=== PATIENT | male | born 1980 | race Two or more races ===

== ENCOUNTER 2018-12-11 05:53 | Inpatient (IN) | payer OTHER ==
[~2018-12-11] VITALS: Ht 180.3 cm; Wt 89.8 kg
[2018-12-11 06:11] VITALS: BP 116/59
--- NOTE | 2018-12-11 06:14 | NUR ---
TO LOBBY A/W BED, AMBULATORY, VSS.
--- NOTE | 2018-12-11 07:13 | NUR ---
pt amb to bed #2
--- NOTE | 2018-12-11 07:18 | NUR ---
pt moved to bed #5
--- NOTE | 2018-12-11 07:27 | NUR ---
BIB SELF. AAOX4. C/O ABD PAIN TO UMBILICUS, RADIATES TO HIS RT SIDE OF ABDOMEN, N/V STARTED LAST NIGHT. PT STATES TENDERNESS TO TOUCH. DENIES TRAUMA OR INJURY. DENIES BLOOD IN VOMIT NOR STOOL. AFEBRILE. NO SOB NOTED. HOB UP. BED SIDE RAILS UP X1. ON LOW BED POSITION, LOCKED. ER MADE AWARE OF PT STATUS.
--- NOTE | 2018-12-11 08:00 | NUR ---
Dr. Noel evaluating patient at bedside.
[2018-12-11] MEDS ORDERED: NACL 0.9% 1,000 ML IV SCH ×2 (08:14→17:25)
[2018-12-11] MEDS ORDERED: NACL 0.9% 1,000 ML IV ONE (08:14)
[2018-12-11] MEDS ORDERED: KETOROLAC 30 MG/ML VIAL IVP ONE (08:15)
[2018-12-11] MEDS ORDERED: MORPHINE SULFATE 4 MG/ML SYR IVP ONE (08:15)
[2018-12-11] MEDS ORDERED: ONDANSETRON 4 MG/2 ML VIAL IVP ONE (08:15)
--- NOTE | 2018-12-11 08:45 | NUR ---
AUXILIARY EQUIPMENT TENDER AT BEDSIDE.
[2018-12-11 08:51] LABS: HEMATOCRIT 45.4 % (36-52); HEMOGLOBIN 15.8 g/dL (12.0-18.0); LYMPHOCYTES # (AUTO) 0.4 K/uL (2.0-11.5); MEAN CORPUSCULAR HEMOGLOBIN 32 pg (27-31); MEAN CORPUSCULAR HGB CONC 35 g/dL (33-37); MEAN CORPUSCULAR VOLUME 91.5 fL (80-94); MONOCYTES # (AUTO) 0.4 K/uL (0.8-1.0); MONOCYTES % (AUTO) 4.6 % (1.7-9.3); NEUTROPHILS # (AUTO) 8.1 K/uL (1.8-7.7); PLATELET COUNT (AUTO) 219 K/uL (140-450); RED BLOOD CELL COUNT(AUTO) 4.97 MIL/uL (4.20-6.10); RED CELL DISTRIBUTION WIDTH 12.7 % (11.6-13.7); WHITE BLOOD COUNT (AUTO) 8.9 K/uL (4.8-10.8)
[2018-12-11 09:01] LABS: LYMPHOCYTES % (AUTO) 4.4 % (20.5-51.1)
[2018-12-11 09:02] LABS: ANION GAP 12.6 (8-16); CARBON DIOXIDE 27.6 mmol/L (21-32); POTASSIUM 4.2 mmol/L (3.5-5.1)
[2018-12-11 09:05] LABS: ALBUMIN 4.6 g/dL (3.4-5.0); TOTAL BILIRUBIN 1.1 mg/dL (0.0-1.0)
[2018-12-11] MEDS ORDERED: PIPERACILLIN/TAZOBACTAM 3.375 GM in DEXTROSE 5% 50 ML IV ONE (09:25)
[2018-12-11] MEDS ORDERED: DEXT 5% /NACL 0.9% 1,000 ML IV SCH (09:32)
[2018-12-11] MEDS ORDERED: ACETAMINOPHEN 325 MG TAB PO PRN (09:35)
[2018-12-11] MEDS ORDERED: DOCUSATE SODIUM 100 MG GELCAP PO PRN (09:35)
[2018-12-11] MEDS ORDERED: ONDANSETRON 4 MG/2 ML VIAL IM/IVP PRN (09:35)
[2018-12-11] MEDS ORDERED: HYDROcodone/APAP 7.5/325 MG 1 TAB PO PRN (09:35)
--- NOTE | 2018-12-11 09:51 | NUR ---
Dr. Wolf and Dr. Noel evaluating patient at bedside.
[2018-12-11] MEDS ORDERED: PIPERACILLIN/TAZOBACTAM 3.375 GM VIAL IV ONE (10:00)
[2018-12-11] MEDS ORDERED: KETOROLAC 30 MG/ML VIAL IVP PRN (10:05)
[2018-12-11] MEDS ORDERED: MORPHINE SULFATE 2 MG/ML SYR IVP PRN (10:05)
[2018-12-11 10:06] LABS: PROTHROMBIN TIME 9.9 secs (10.8-13.4)
[2018-12-11 10:17] LABS: FREE T4 (FREE THYROXINE) 1.17 ng/dL (0.76-1.46); MAGNESIUM 1.9 mg/dL (1.8-2.4); THYROID STIMULATING HORMONE 3.21 uIU/mL (0.34-3.74)
[2018-12-11 10:30] VITALS: BP 113/59
--- NOTE | 2018-12-11 10:30 | NUR ---
PATIENT WAS TRANSFERRED FROM ED IN WHEELCHAIR. REPORT WAS GIVEN AT BEDSIDE. VS WAS TAKEN. MRSA WAS SWABBED. PATIENT WAS AWAKE, ALERT, AMBULATED SELF TO BED, STEADY GAIT. RESPIRATION EVEN, UNLABOR ON ROOM AIR. SKIN DRY AND WARM. DENIED PAIN AT THIS TIME. PATIENT WAS ORIENTED TO ROOM , STAFF, AND CALL LIGHT. PLAN OF CARE WAS DISCUSSED WITH PATIENT. BED AT LOW POSITION, SIDE RAILS UP. CALL LIGHT WITHIN REACH.
--- NOTE | 2018-12-11 10:30 | NUR ---
Patient will be admitted to care of Dr Bailey. Admited to Med Surg. Will go to room 118. Belongings list completed. Report to NAIN Sanchez.
[2018-12-11 10:41] LABS: BILIRUBIN,URINE 2+ (NEGATIVE); BLOOD, URINE NEGATIVE (NEGATIVE); COLOR,URINE AMBER (YELLOW); LEUKOCYTE ESTERASE ,URINE NEGATIVE (NEGATIVE); NITRITE, URINE NEGATIVE (NEGATIVE); UGLUCOSE NEGATIVE (NEGATIVE)
[2018-12-11 10:42] LABS: APPEARANCE,URINE SLIGHTLY HAZY (CLEAR)
[2018-12-11 10:51] LABS: RBC,URINE NONE SEEN /HPF (0-5); WBC,URINE NONE SEEN /HPF (0-5)
[2018-12-11 10:52] LABS: URINE AMORPHOUS URATE 1+ /HPF (None Seen)
--- NOTE | 2018-12-11 12:00 | NUR ---
PATIENT WAS TRANSFERRED TO OR. PATIENT IS STABLE AT THIS TIME
[2018-12-11] MEDS ORDERED: KETOROLAC 30 MG/ML VIAL ONE (12:36)
[2018-12-11] MEDS ORDERED: ONDANSETRON 4 MG/2 ML VIAL ONE (12:36)
[2018-12-11] MEDS ORDERED: PROPOFOL 200 MG/20 ML VIAL IV ONE (12:36)
[2018-12-11] MEDS ORDERED: NEOSTIGMINE 1:1000 10 MG/10 ML VIAL ONE (12:36)
[2018-12-11] MEDS ORDERED: GLYCOPYRROLATE 0.2 MG/ML VIAL ONE (12:36)
[2018-12-11] MEDS ORDERED: SUCCINYLCHOLINE CHLORIDE 200 MG/10 ML VIAL IVP ONE (12:36)
[2018-12-11] MEDS ORDERED: ROCURONIUM 50 MG/5 ML VIAL IV ONE (12:36)
[2018-12-11] MEDS ORDERED: DESFLURANE 240 ML BTL INH ONE (12:36)
[2018-12-11] MEDS ORDERED: DEXAMETHASONE 4 MG/ML VIAL ONE (12:36)
[2018-12-11] MEDS ORDERED: BUPIVACAINE-MPF/EPI 0.25% 30 ML VIAL INJ ONE (12:40)
[2018-12-11] MEDS ORDERED: HYDROmorphone PFS 2 MG/ML SYR ONE (12:46)
[2018-12-11] MEDS ORDERED: fentaNYL 0.05 MG/ML VIAL ONE (12:46)
[2018-12-11] MEDS ORDERED: HYDROmorphone 1 MG/ML AMP IVP PRN (13:15)
[2018-12-11] MEDS ORDERED: ONDANSETRON 4 MG/2 ML VIAL IVP PRN (13:15)
[2018-12-11] MEDS ORDERED: HYDROcodone/APAP 5/325 MG 1 TAB TAB PO PRN (13:50)
[2018-12-11 14:30] VITALS: BP 99/51
--- NOTE | 2018-12-11 14:36 | NUR ---
PATIENT WAS TRANSFERRED BACK FROM OR. REPORT WAS GIVEN AT BEDSIDE. VS WAS TAKEN. PATIENT IS STABLE AT THIS TIME
[2018-12-11 14:50] VITALS: BP 97/58
[2018-12-11 15:05] VITALS: BP 98/51
[2018-12-11 15:20] VITALS: BP 95/52
--- NOTE | 2018-12-11 16:00 | NUR ---
PATIENT WAS SLEEPING COMFORTABLY. RESPIRATION EVEN, UNLABOR ON ROOM AIR. NO DISTRESS NOTED AT THIS TIME
[2018-12-11] MEDS: PIPER/TAZO 3.375GM/D5W PREMIX 50 ML IV SCH ×2 (17:32→23:53)
--- NOTE | 2018-12-11 18:23 | NUR ---
PATIENT WAS AWAKE, ALERT. RESPIRATION EVEN, UNLABOR ON ROOM AIR. DENIED N/V. PATIENT TOLERATED DIET WELL.
--- NOTE | 2018-12-11 19:20 | NUR ---
ENDORSEMENT GIVEN TO LOOP PULLER NURSE. PATIENT IS STABLE AT THIS TIME
--- NOTE | 2018-12-11 19:21 | NUR ---
RECEIVED BEDSIDE REPORT FROM DAY SHIFT RN, PATIENT RESTING IN BED WITH VISITORS AT BEDSIDE, NO SIGNS OF DISTRESS ON RA, NO COMPLAINTS OF PAIN AT THIS TIME, BED LOW, CALL LIGHT IN REACH. WILL CONTINUE TO MONITOR.
--- NOTE | 2018-12-11 21:50 | NUR ---
PATIENT RESTING IN BED, NO SIGNS OF DISTRESS ON RA, PATIENT IS VERY HUNGRY AND REQUESTING FOOD, HE HAS TOLERATED HIS CLEAR LIQUID DIET AND HAS NO ABD PAIN. SPOKE WITH DR. CONNELL TO ADVANCE PATIENT DIET TO REGULAR VEGETARIAN, HE WILL PLACE ORDER.
[2018-12-12 00:15] VITALS: BP_SYST 106; BP_SYST 111; BP_DIAS 59; BP_DIAS 66
--- NOTE | 2018-12-12 02:35 | NUR ---
PATIENT IS SLEEPING IN BED, NO SIGNS OF DISTRESS ON RA. WILL CONTINUE TO MONITOR.
--- NOTE | 2018-12-12 04:13 | NUR ---
PATIENT IS STILL SLEEPING. WILL CONTINUE TO MONITOR.
[2018-12-12] MEDS: PIPER/TAZO 3.375GM/D5W PREMIX 50 ML IV SCH ×2 (05:47→13:08)
[2018-12-12 05:50] VITALS: BP 102/57
--- NOTE | 2018-12-12 05:50 | NUR ---
PT GOT UP TO THE BATHROOM AND VOIDED, THEN C/O PAIN 12/07. WILL MEDICATE ORDERED.
[2018-12-12 06:35] LABS: EOSINOPHILS % (AUTO) 0.1 % (0.0-4.0); HEMATOCRIT 38.4 % (36-52); HEMOGLOBIN 13.6 g/dL (12.0-18.0); LYMPHOCYTES # (AUTO) 0.9 K/uL (2.0-11.5); LYMPHOCYTES % (AUTO) 9.6 % (20.5-51.1); MEAN CORPUSCULAR HEMOGLOBIN 33 pg (27-31); MEAN CORPUSCULAR HGB CONC 36 g/dL (33-37); MEAN CORPUSCULAR VOLUME 91.5 fL (80-94); MONOCYTES # (AUTO) 0.5 K/uL (0.8-1.0); MONOCYTES % (AUTO) 5.6 % (1.7-9.3); NEUTROPHILS # (AUTO) 7.5 K/uL (1.8-7.7); NEUTROPHILS % (AUTO) 84.7 % (42.2-75.2); PLATELET COUNT (AUTO) 183 K/uL (140-450); RED CELL DISTRIBUTION WIDTH 12.7 % (11.6-13.7); WHITE BLOOD COUNT (AUTO) 8.8 K/uL (4.8-10.8)
[2018-12-12 06:52] LABS: ANION GAP 11.2 (8-16); CARBON DIOXIDE 29.4 mmol/L (21-32); CREATININE 1.1 mg/dL (0.7-1.3); POTASSIUM 4.6 mmol/L (3.5-5.1)
--- NOTE | 2018-12-12 07:20 | NUR ---
RECEIVED REPORT FROM BUSINESS SERVICES REPRESENTATIVE RN AT BEDSIDE. PT IS AAOX4, NO DISTRESS NOTED ON RM AIR. 3 INCISIONS NOTED TO THE LEFT ABD, SEALED WITH DERMABOND, NO DRAINAGE NOTED. DENIES PAIN AT THIS TIME. PT SAID HE ALREADY GOT PAIN MEDICATION. LUNGS CTA ON ALL LOBES. IV CATH TO THE LEFT AC 20G, INTACT AND ASYMPTOMATIC. POC DISCUSSED, PATIENT VERBALIZED UNDERSTANDING. SAFETY MEASURES IN PLACE, CALL LIGHT WITHIN REACH. WILL CONTINUE TO MONITOR.
--- NOTE | 2018-12-12 07:25 | NUR ---
ENDORSED PT IN STABLE CONDITION TO AM NURSE.
[2018-12-12 08:26] LABS: T4 (THYROXINE) 7.3 ug/dL (4.5-12.0)
--- NOTE | 2018-12-12 08:38 | NUR ---
PATIENT HAS BEEN SCREENED AND CATEGORIZED LOW NUTRITION RISK. PATIENT WILL BE SEEN WITHIN 7 DAYS OF ADMISSION. 12/17/[address]
--- NOTE | 2018-12-12 09:50 | NUR ---
PT STATED HE HAS NOT PASS GAS. ENCOURAGED PT TO AMBULATE. PT SAID WILL AMBULATED IN HIS ROOM.
--- NOTE | 2018-12-12 14:30 | NUR ---
PT SAID HE AMBULATED AROUND THE HALLWAY FOR 10MIN. PT SAID HE DENIES PASSING GAS. Addendum: 12/12/18 at 1947 by Donal Maria RN HOWEVER, BOWEL SOUND IS ACTIVE.
[2018-12-12] MEDS ORDERED: IBUP200C97 PO (15:08)
[2018-12-12] MEDS ORDERED: HYDR-5123 PO (15:08)
[2018-12-12 16:00] VITALS: BP 106/63
[2018-12-12] MEDS ORDERED: SIME80CT70 PO (16:38)
[2018-12-12] MEDS ORDERED: MIRABULK PO (16:38)
[2018-12-12] MEDS ORDERED: SIMETHICONE 80 MG TAB.CHEW PO SCH (17:00)
--- NOTE | 2018-12-12 17:00 | NUR ---
PROVIDED PT WITH COLACE, PRUNE JUICE AND SIMETHICONE, ORDERED BY .
--- NOTE | 2018-12-12 17:30 | NUR ---
PT SAID HIS COUSIN IS COMING AROUND 7 OR 8 TO PICK HIM UP. NOTIFIED CHARGE NURSE JOSE.
--- NOTE | 2018-12-12 19:25 | NUR ---
ENDORSED PT TO CLINIC RECEPTIONIST RN. PT IN STABLE CONDITION.
--- NOTE | 2018-12-12 19:25 | NUR ---
RECEIVED BEDSIDE REPORT FROM RN ARMIN, PATIENT TO BE DC HOME, ABDOMINAL PICTURE TAKEN
--- NOTE | 2018-12-12 19:42 | NUR ---
ALL DC PAPERWORK SIGNED, DC IV IN LEFT AC 20 G APPLIED BANDAGE. ALL BELONGINGS GIVEN TO PATIENT. REMOVED WRIST BANDS, PATIENT LEFT STABLE.
== END 2018-12-12 19:45 | disposition home or self-care (01) | DRG 343 ==
LOC: MED 05:55 → MTU 09:32 → EEVIPCON 09:32
PROVIDERS: ADMIT General Practice; ATTEND General Practice
PROC: 0DTJ4ZZ Resection of Appendix, Percutaneous Endoscopic Approach (ICD-10-PCS; principal; 2018-12-11 12:30)
DX: K35.80 Unspecified acute appendicitis (principal); F43.9 Reaction to severe stress, unspecified; R73.9 Hyperglycemia, unspecified; E80.6 Other disorders of bilirubin metabolism; Z83.3 Family history of diabetes mellitus; Z82.49 Family history of ischemic heart disease and other diseases of the circulatory system
CPT/HCPCS: 36415; 71045; 76705; 80048; 80053; 81001; 82150; 82374; 83036; 83690; 83735; 83880; 84100; 84436; 84439; 84443; 84479; 84484; 85025; 85610; 85730; 86886; 86900; 86901; 87040; 87081; 88304; 96361; 96374; 96375; 99285; J0330; J1100; J1170; J1885; J2270; J2405; J2543; J2704; J2710; J3010; J3490; J7030; Q0092

== ENCOUNTER 2018-12-16 08:05 | Emergency (ER) | payer OTHER ==
[~2018-12-16] VITALS: Ht 177.8 cm; Wt 92.2 kg
[~2018-12-16 08:05] MED LIST: HYDR-5123 PO; IBUP200C97 PO; MIRABULK PO; SIME80CT70 PO
--- NOTE | 2018-12-16 08:05 | NUR ---
Note undone in EDM - 12/16/18 at 0839 by IRVIN C/O CONSTIPATION. PT REPORTS SMALL HARD DARK STOOL YESTERDAY. PT HAD APPENDECTOMY AT [facility] ON 12/11/18. PT REPORTS BLOATING AND PAIN AT INSCISION SITE AT 3/10. DENIES N/V/D OR FEVER . DENIES N/V/D; SKIN IS PINK/WARM/DRY; AAOX4 WITH EVEN AND STEADY GAIT; LUNGS CLEAR BL; HR EVEN AND REGULAR; PT DENIES ANY FEVER, CP, SOB, OR COUGH AT THIS TIME; PATIENT STATES PAIN OF 3/10 AT THIS TIME; VSS; PATIENT POSITIONED FOR COMFORT; HOB ELEVATED; BEDRAILS UP X2; BED DOWN. ER MD MADE AWARE OF PT STATUS.
[2018-12-16 08:15] VITALS: BP 153/103
--- NOTE | 2018-12-16 08:22 | NUR ---
Patient ambulated to bed 11. RN evaluating patient at bedside.
--- NOTE | 2018-12-16 08:25 | NUR ---
C/O CONSTIPATION. PT REPORTS SMALL HARD DARK STOOL YESTERDAY. PT HAD APPENDECTOMY AT [facility] ON 12/11/18. PT REPORTS BLOATING AND PAIN AT INSCISION SITE AT 3/10. DENIES N/V/D OR FEVER . DENIES N/V/D; SKIN IS PINK/WARM/DRY; AAOX4 WITH EVEN AND STEADY GAIT; LUNGS CLEAR BL; HR EVEN AND REGULAR; PT DENIES ANY FEVER, CP, SOB, OR COUGH AT THIS TIME; PATIENT STATES PAIN OF 3/10 AT THIS TIME; VSS; PATIENT POSITIONED FOR COMFORT; HOB ELEVATED; BEDRAILS UP X2; BED DOWN. ER MD MADE AWARE OF PT STATUS.
--- NOTE | 2018-12-16 08:49 | NUR ---
medical technical writer at bedside.
--- NOTE | 2018-12-16 09:55 | NUR ---
Dr. Lee re-evaluating patient at bedside.
--- NOTE | 2018-12-16 10:00 | NUR ---
Patient discharged with v/s stable. Written and verbal after care instructions given and explained. Patient alert, oriented and verbalized understanding of instructions. Ambulatory with steady gait. All questions addressed prior to discharge. ID band removed. Patient advised to follow up with PMD. Rx of golytely, zofran, glycerin and magnesium citrate given. Patient educated on indication of medication including possible reaction and side effects. Opportunity to ask questions provided and answered.
[2018-12-16 10:09] VITALS: BP 135/78
== END 2018-12-16 10:00 | disposition home or self-care (01) ==
LOC: MED 08:05
DX: K56.41 Fecal impaction (principal); Z90.89 Acquired absence of other organs; Z79.891 Long term (current) use of opiate analgesic; Z79.1 Long term (current) use of non-steroidal anti-inflammatories (NSAID); Z79.899 Other long term (current) drug therapy
CPT/HCPCS: 74018; 99283; Q0092

== ENCOUNTER 2023-09-02 18:47 | Emergency (ER) | payer OTHER ==
[~2023-09-02] VITALS: Ht 167.6 cm; Wt 73.9 kg
[~2023-09-02 18:47] MED LIST changes: +HYDR-5080 PO; -HYDR-5123 PO; -SIME80CT70 PO; +SIME80TA41 PO
[2023-09-02 19:07] VITALS: BP 133/90; PULSE 67; RESP 18; TEMP 97.8; O2SAT 98
[2023-09-02 20:33] LABS: FLU A ANTIGEN negative (NEGATIVE); FLU B ANTIGEN NEGATIVE (NEGATIVE)
[2023-09-02] MEDS ORDERED: BENZ200C4 PO (20:36)
[2023-09-02] MEDS ORDERED: BENZ-300 PO (20:36)
[2023-09-02 21:05] VITALS: BP 133/90; PULSE 67; RESP 18; TEMP 97.8; O2SAT 98
[2023-09-02 21:23] LABS: ALBUMIN 3.7 g/dL (3.4-5.0); ANION GAP 9.5 (8-16); CALCIUM 8.7 mg/dL (8.5-10.1); CARBON DIOXIDE 31.7 mmol/L (21-32); POTASSIUM 4.2 mmol/L (3.5-5.1); TOTAL BILIRUBIN 1.2 mg/dL (0.0-1.0); TOTAL PROTEIN, SERUM 8.3 g/dL (6.4-8.2)
== END 2023-09-02 21:05 | disposition home or self-care (01) ==
LOC: MED 18:47
DX: J02.9 Acute pharyngitis, unspecified (principal); Z20.822 Contact with and (suspected) exposure to COVID-19; R03.0 Elevated blood-pressure reading, without diagnosis of hypertension; Z79.899 Other long term (current) drug therapy
CPT/HCPCS: 36415; 80053; 87081; 99283